=== PATIENT | male | born 1975 | race African-American/Black ===

== ENCOUNTER 2016-04-15 15:13 | Emergency (ER) | payer MEDICARE, MEDICAID ==
[~2016-04-15] VITALS: Ht 177.8 cm; Wt 111.1 kg
[~2016-04-15 15:13] MED LIST: AZITHROMYCIN250 MG ORAL; CIPROFLOXACIN500 M2 ORAL; CLINDAMYCIN HC300 MG ORAL; CORTISPORIN EAR10 ML OTIC; CYCLOBENZAPRINE10 MG ORAL; FLONASE1 SPRAYS NASAL; GENTAK3.5 GM OP; IBUPROFEN600 MG ORAL; IBUPROFEN800 MG ORAL; KEFLEX500 MG ORAL; LATUDA40 MG PO; NKM; NORCO 5-325 TA1 EACH ORAL; PROMETHAZINE-D118 ML ORAL; RISPERDAL1 MG PO; ROBAXIN500 MG PO; TRAMADOL HCL50 MG ORAL; TRILEPTAL300 MG PO; TRILEPTAL600 MG PO; VENTOLIN HFA18 GM INH; ZITHROMAX250 MG ORAL; ZOLOFT100 MG ORAL
[2016-04-15 15:29] VITALS: BP 141/93
[2016-04-15] MEDS ORDERED: Ipratropium 0.02% Inh Soln 2.5ml UD HHN ONE (15:45)
[2016-04-15] MEDS ORDERED: Albuterol ud Inhalation HHN ONE (15:45)
[2016-04-15] MEDS ORDERED: PROAIR HFA8.5 GM INH (16:24)
[2016-04-15 16:44] VITALS: BP 137/81
--- NOTE | 2016-04-15 17:59 | Emergency Room Report ---
History of Present Illness General Chief Complaint: Asthma Source: Patient, Medical Record Present Illness HPI The patient is a 40-year-old male with a history of asthma presenting with chest tightness which began this morning. The patient states that he has run out of his albuterol which usually helps. The patient denies any other symptoms including chest pain, shortness of breath, cough, nausea, vomiting, fever, chills, headache, dizziness Allergies: Coded Allergies: PENICILLINS (Unverified Allergy, Unknown, 01/21/14) Patient History Past Medical History: see triage record, asthma Pertinent Family History: none Reviewed Nursing Documentation: PMH: Agreed, PSxH: Agreed Nursing Documentation-PMH Hx Asthma: Yes Review of Systems All Other Systems: negative except mentioned in HPI Physical Exam Vital Signs Date Time Temp Pulse Resp B/P Pulse Ox O2 Delivery O2 Flow Rate FiO2 04/15/16 15:23 99.0 114 16 141/93 99 Room Air Sp02 EP Interpretation: reviewed, normal General Appearance: no apparent distress, alert, GCS 15, non-toxic Head: normocephalic, atraumatic Eyes: bilateral eye PERRL, bilateral eye normal inspection ENT: hearing grossly normal, normal pharynx, no angioedema, normal voice Neck: full range of motion, supple/symm/no masses Respiratory: chest non-tender, no respiratory distress, no retraction, no accessory muscle use, no wheezing, decreased breath sounds Cardiovascular #1: regular rate, rhythm, no edema Musculoskeletal: back normal, gait/station normal, normal range of motion, non- tender Neurologic: alert, oriented x3, responsive, motor strength/tone normal, sensory intact, speech normal Psychiatric: judgement/insight normal, memory normal, mood/affect normal, no suicidal/homicidal ideation Reflexes: 3+ bicep (R), 3+ bicep (L), 3+ tricep (R), 3+ tricep (L), 3+ knee (R) , 3+ knee (L) Skin: normal color, no rash, warm/dry, well hydrated Lymphatic: no adenopathy Medical Decision Making PA Attestation Dr. Del Cid is my supervising physician. Patient management was discussed with my supervising physician Diagnostic Impression: Primary Impression: Asthma ER Course The patient is a 40-year-old male with a history of asthma presenting for asthma exacerbation Differential diagnoses considered but not limited to: Asthma exacerbation, bronchitis, pneumonia, anxiety Physical exam: Vitals within normal limits. No apparent distress HEENT exam is unremarkable Lungs: Decreased breath sounds bilaterally. Chest is nontender. No respiratory distress. No accessory muscle use. The patient was given a breathing treatment and is feeling much better. Lungs sounds have increased Patient is discharged home with a prescription for albuterol and will followup with PMD. ER precautions are given Last Vital Signs Date Time Temp Pulse Resp B/P Pulse Ox O2 Delivery O2 Flow Rate FiO2 04/15/16 16:44 99.0 100 18 137/81 100 Room Air Status: improved Disposition: HOME, SELF-CARE Condition: Improved Scripts Albuterol Sulfate* (PROAIR HFA*) 8.5 Gm Hfa.aer.ad 2 PUFFS INH Q6H, #8.5 GM 0 Refills Prov: CONNIE BETTS 04/15/16 Referrals: Alex Riley MD (PCP) Patient Instructions: Asthma, Adult Additional Instructions: I discussed my findings with the patient. All questions and concerns have been answered. Treatment and medication compliance have been addressed. I advised the patient that they need to follow up with PMD in 3-5 days. Return to ED if symptoms worsen, new symptoms arise, or if needed for any reason. Patient verbalized understanding of discharge instructions. CONNIE BETTS Apr 15, 2016 17:59
== END 2016-04-15 16:44 | disposition home or self-care (01) ==
LOC: EMR 15:56
DX: J45.909 Unspecified asthma, uncomplicated (principal); Z88.0 Allergy status to penicillin
CPT/HCPCS: 94640; 94664; 99283

== ENCOUNTER 2016-08-15 02:06 | Inpatient (IN) | payer MEDICARE, MEDICAID ==
[2016-08-15] VITALS (8 sets, daily range): BP systolic 104–149; BP diastolic 43–100
[~2016-08-15] VITALS: Ht 175.3 cm; Wt 108.9 kg
[~2016-08-15 02:06] MED LIST changes: +PROAIR HFA8.5 GM INH
--- NOTE | 2016-08-15 02:25 | Emergency Room Report ---
History of Present Illness General Chief Complaint: Chest Pain Source: Patient Present Illness HPI Patient presents with dyspnea. This been on for several days. He was given a breathing treatment several days ago emergency room but has not gotten better. Denies any fevers. He is unable to produce any phlegm. He has crackles and wheezes in his chest. He denies any chest pain per se but has dyspnea on exertion. Himself here. In the past he's had an admission for rule out which is negative. Patient denies calf pain/swelling, hemoptysis. Denies fever, chills, NVD, dysuria. Denies smoking but admits to some drug use. Denies SI or HI. Never been this dyspneic. Allergies: Coded Allergies: PENICILLINS (Unverified Allergy, Unknown, 01/21/14) Patient History Past Medical History: see triage record Social History: Reports: drug use, Denies: smoking Social History Narrative drove himself here Reviewed Nursing Documentation: PMH: Agreed, PSxH: Agreed Nursing Documentation-PMH Past Medical History: No History, Except For Hx Asthma: Yes Review of Systems All Other Systems: negative except mentioned in HPI Physical Exam Vital Signs Date Time Temp Pulse Resp B/P Pulse Ox O2 Delivery O2 Flow Rate FiO2 08/15/16 02:10 100.0 112 16 129/83 89 Room Air Sp02 EP Interpretation: reviewed, abnormal - hypoxemic on room air General Appearance: well appearing, GCS 15, mild distress Head: normocephalic Eyes: bilateral eye PERRL, bilateral eye Scleral Injection ENT: moist mucus membranes Neck: supple Respiratory: crackles, rales, wheezing, expiration Cardiovascular #1: regular rate, rhythm, no edema, no JVD Cardiovascular #2: 2+ radial (R) Gastrointestinal: normal inspection, normal bowel sounds, non tender, no mass, non-distended Musculoskeletal: back normal, gait/station normal, normal range of motion Neurologic: alert, oriented x3, grossly normal Psychiatric: mood/affect normal Skin: normal inspection, warm/dry Medical Decision Making Diagnostic Impression: Primary Impression: Hypoxia Additional Impressions: Amphetamine abuse Leukocytosis Qualified Codes: D72.829 - Elevated white blood cell count, unspecified ER Course Patient presents with dyspnea with rales. Differential includes pneumonia, congestive heart failure, bronchospasm, PE amongst others. Emergent evaluation with EKG, chest x-ray and labs undertaken. The patient be treated with aspirin and nitroglycerin paste morphine and also breathing treatments. Patient is quite hypoxemic on oxygen. D dimer is negative. BNP is low. CXR not significant infiltrates, though with elevated WBC, need to cover for pneumonia. + tox screen. Slight improvement, but still with hypoxia. Discussed with Dr. Zarate - admit telemetry. Laboratory Tests Test 08/15/16 02:35 08/15/16 03:55 White Blood Count 13.4 K/UL (4.8-10.8) H Red Blood Count 5.48 M/UL (4.70-6.10) Hemoglobin 14.8 G/DL (14.2-18.0) Hematocrit 46.5 % (42.0-52.0) Mean Corpuscular Volume 85 FL (80-99) Mean Corpuscular Hemoglobin 27.1 PG (27.0-31.0) Mean Corpuscular Hemoglobin Concent 31.9 G/DL (32.0-36.0) L Red Cell Distribution Width 13.2 % (11.6-14.8) Platelet Count 240 K/UL (150-450) Mean Platelet Volume 9.7 FL (6.5-10.1) Neutrophils (%) (Auto) 73.5 % (45.0-75.0) Lymphocytes (%) (Auto) 14.8 % (20.0-45.0) L Monocytes (%) (Auto) 6.6 % (1.0-10.0) Eosinophils (%) (Auto) 4.2 % (0.0-3.0) H Basophils (%) (Auto) 0.9 % (0.0-2.0) Prothrombin Time 10.5 SEC (9.30-11.50) Prothrombin Time INR 1.0 (0.9-1.1) PTT 29 SEC (23-33) D-Dimer < 100 ng/mL (<500) Sodium Level 140 mEQ/L (135-145) Potassium Level 3.8 mEQ/L (3.4-4.9) Chloride Level 100 mEQ/L (98-107) Carbon Dioxide Level 25 mEQ/L (20-30) Anion Gap 15 (5-15) Blood Urea Nitrogen 13 mg/dL (7-23) Creatinine 1.2 mg/dL (0.7-1.2) Estimate Glomerular Filtration Rate > 60 mL/min (>60) Glucose Level 101 mg/dL (74-106) Calcium Level 9.1 mg/dL (8.6-10.2) Total Bilirubin 0.2 mg/dL (0.0-1.2) Aspartate Amino Transferase (AST) 21 U/L (5-40) Alanine Aminotransferase (ALT) 20 U/L (3-41) Alkaline Phosphatase 73 U/L (40-129) Total Creatine Kinase 515 U/L (38-174) H Creatine Kinase MB 5.0 ng/mL (< 6.7) Creatine Kinase MB Relative Index 0.9 Troponin I < 0.30 ng/mL (<=0.30) Pro-B-Type Natriuretic Peptide 9 pg/mL (0-125) Total Protein 7.6 g/dL (6.6-8.7) Albumin 4.4 g/dL (3.5-5.2) Globulin 3.2 g/dL Albumin/Globulin Ratio 1.3 (1.0-2.7) Urine Color Yellow Urine Appearance Clear Urine pH 5 (4.5-8.0) Urine Specific [place] 1.025 (1.005-1.035) Urine Protein 1+ (NEGATIVE) H Urine Glucose (UA) Negative (NEGATIVE) Urine Ketones Negative (NEGATIVE) Urine Occult Blood Negative (NEGATIVE) Urine Nitrite Negative (NEGATIVE) Urine Bilirubin Negative (NEGATIVE) Urine Urobilinogen Normal MG/DL (0.0-1.0) Urine Leukocyte Esterase 1+ (NEGATIVE) H Urine RBC 0-2 /HPF (0 - 0) H Urine WBC 2-4 /HPF (0 - 0) Urine Squamous Epithelial Cells Occasional /LPF Urine Bacteria Few /HPF (NONE) Urine Mucus Moderate /LPF (NONE/OCC) H Urine Opiates Screen Positive (NEGATIVE) H Urine Barbiturates Screen Negative (NEGATIVE) Phencyclidine (PCP) Screen Negative (NEGATIVE) Urine Amphetamines Screen Positive (NEGATIVE) H Urine Benzodiazepines Screen Negative (NEGATIVE) Urine Cocaine Screen Negative (NEGATIVE) Urine Marijuana (THC) Screen Positive (NEGATIVE) H EKG Diagnostic Results Rate: tachycardiac Rhythm: NSR ST Segments: no acute changes Rhythm Strip Diag. Results EP Interpretation: yes Rhythm: no PVC's, no ectopy, other - ST Chest X-Ray Diagnostic Results Chest X-Ray Diagnostic Results : Chest X-Ray Ordered: Yes # of Views/Limited/Complete: 1 View EP Interpretation: Yes Interpretation: no consolidation, no effusion, no pneumothorax, no acute cardiopulmonary disease Indication: Shortness of Breath Impression: Other Interpreting ER Provider: Electronically signed by David Del Cid MD Last Vital Signs Date Time Temp Pulse Resp B/P Pulse Ox O2 Delivery O2 Flow Rate FiO2 08/15/16 05:00 97 16 116/73 96 Nasal Cannula 2.0 08/15/16 04:52 99.0 Status: improved Disposition: ADMITTED INPATIENT Condition: Serious David Del Cid M.D. Aug 15, 2016 02:25
[2016-08-15] MEDS ORDERED: Aspirin Baby 81mg ORAL ONE (02:30)
[2016-08-15] MEDS ORDERED: Nitroglycerin 2% oint pkt TOPIC ONE (02:30)
[2016-08-15] MEDS ORDERED: Ipratropium 0.02% Inh Soln 2.5ml UD HHN ONE (02:30)
[2016-08-15] MEDS ORDERED: Morphine Sulfate 2mg/ml Inj IVP ONE (02:30)
[2016-08-15] MEDS: Albuterol ud Inhalation HHN SCH ×3 (02:35→03:01)
[2016-08-15 02:50] LABS: BASOPHILS % (AUTO) 0.9 % (0.0-2.0); EOSINOPHILS % (AUTO) 4.2 % (0.0-3.0); LYMPHOCYTES % (AUTO) 14.8 % (20.0-45.0); MEAN CORPUSCULAR HEMOGLOBIN 27.1 PG (27.0-31.0); MEAN CORPUSCULAR HGB CONC 31.9 G/DL (32.0-36.0); MEAN CORPUSCULAR VOLUME 85 FL (80-99); MEAN PLATELET VOLUME 9.7 FL (6.5-10.1); MONOCYTES % (AUTO) 6.6 % (1.0-10.0); NEUTROPHILS % (AUTO) 73.5 % (45.0-75.0); PLATELET COUNT 240 K/UL (150-450); RED BLOOD COUNT 5.48 M/UL (4.70-6.10); RED CELL DISTRIBUTION WIDTH 13.2 % (11.6-14.8); WHITE BLOOD COUNT 13.4 K/UL (4.8-10.8)
[2016-08-15 03:22] LABS: PROTHROMBIN TIME 10.5 SEC (9.30-11.50)
[2016-08-15 03:30] LABS: ALANINE AMINOTRANSFERASE 20 U/L (3-41); ALBUMIN/GLOBULIN RATIO 1.3 (1.0-2.7); ANION GAP 15 (5-15); ASPARTATE AMINO TRANSFERASE 21 U/L (5-40); CALCIUM 9.1 mg/dL (8.6-10.2); CARBON DIOXIDE 25 mEQ/L (20-30); CHLORIDE 100 mEQ/L (98-107); CREATININE 1.2 mg/dL (0.7-1.2); GLOMERULAR FILTRATION RATE > 60 mL/min (>60); HEMOLYSIS 5; POTASSIUM 3.8 mEQ/L (3.4-4.9); SODIUM 140 mEQ/L (135-145); TOTAL PROTEIN 7.6 g/dL (6.6-8.7)
[2016-08-15 03:32] LABS: TROPONIN I < 0.30 ng/mL (<=0.30)
[2016-08-15 04:14] LABS: APPEARANCE,URINE CLEAR; KETONES,URINE NEGATIVE (NEGATIVE); LEUKOCYTE ESTERASE ,URINE 1+ (NEGATIVE); NITRITE,URINE NEGATIVE (NEGATIVE); PH,URINE 5 (4.5-8.0); PROTEIN,URINE 1+ (NEGATIVE); UROBILINOGEN,URINE NORMAL MG/DL (0.0-1.0)
[2016-08-15] MEDS ORDERED: Cefepime HCl 1 GM in D5W 55 ML IVPB ONE (04:15)
[2016-08-15] MEDS ORDERED: Solu-MEDROL 125mg Inj IVP ONE (04:15)
[2016-08-15] MEDS ORDERED: Cefepime 1gm vial ONE (04:24)
[2016-08-15 04:55] LABS: RBC,URINE 0-2 /HPF (0 - 0); SQUAMOUS EPITHELIAL CELL,UR OCCASIONAL /LPF (NONE/OCC)
[2016-08-15 04:56] LABS: BACTERIA,URINE FEW /HPF; MUCUS,URINE MODERATE /LPF (NONE/OCC)
[2016-08-15] MEDS ORDERED: DuoNeb 0.5-3(2.5)mg/3ml neb HHN PRN (09:00)
[2016-08-15] MEDS ORDERED: 1/2NS w/KCl 20mEq 1000ml 1,000 ML IV SCH (09:00)
[2016-08-15 09:02] LABS: ABG ALLEN TEST POSITIVE; ABG BASE EXCESS -3.2; ABG PCO2 38.4 mmHg (35.0-45.0)
--- NOTE | 2016-08-15 10:16 | History and Physical Report ---
DATE OF ADMISSION: 08/15/2016 CHIEF COMPLAINT: Shortness of breath. HISTORY OF PRESENT ILLNESS: This is a 41-year-old male with history of bronchial asthma. The patient is admitted with acute exacerbation of his asthma. PAST MEDICAL HISTORY: 1. Bronchial asthma. 2. Chronic low back pain. 3. Obesity. 4. History of proteinuria. 5. History of methamphetamine use. 6. History of suicidal ideations in the past. MEDICATIONS: Home medications including [place], albuterol inhalation, Zithromax, cephalexin, ciprofloxacin, clindamycin, Flexeril, famotidine with codeine syrup, fluticasone propionate nasal spray, gentamicin eye drops, ibuprofen, Latuda, pyridoxine, Trileptal, risperidone, Zoloft, and tramadol. ALLERGIES: Penicillins. SOCIAL HISTORY: He lives at home. HABITS: Significant for methamphetamine use. He denies cigarette smoking. FAMILY HISTORY: Unremarkable. REVIEW OF SYSTEMS: HEENT: Ears, Nose, and Throat, normal. Endocrine: No history of diabetes, thyroid, or adrenal problems. Respiratory: history of present illness. Cardiovascular: Denies chest pain or palpitations. Gastrointestinal: No hematochezia, melena, hematemesis, diarrhea, or constipation. Genitourinary: He denies dysuria, frequency, urgency, or hematuria. Neurological: No history of stroke, syncope, or Parkinson disease. Psychiatric: Significant for history of depression. PHYSICAL EXAMINATION: GENERAL: This is a middle-aged male, who is obese. The patient is in moderate respiratory distress. VITAL SIGNS: Blood pressure 135/72, pulse 106 apical, respirations 20, temperature is 98.2 degrees, O2 saturation currently is 99% on 2 liters per minute nasal cannula. HEENT: The head is normocephalic and atraumatic. Pupils are equal, round, and reactive to light and accommodation consensually. NECK: Supple. Trachea midline. There was no lymphadenopathy or thyromegaly. LUNGS: Bilateral wheezes and extreme with prolongation of the expiratory phase. HEART: Regular rate and rhythm with tachycardia. ABDOMEN: Soft and nontender. Bowel sounds were active. EXTREMITIES: No clubbing, cyanosis, or edema. NEUROLOGICAL: He is alert and oriented x4. Cranial nerves II through XII are intact. LABORATORY AND ANCILLARY DATA: CBC shows a white count 13,400. The rest is normal. Serum chemistry, CPK 515, otherwise within normal limits. Urinalysis, 1+ leukocyte esterase, sediment is within normal limits, and 1+ protein. Chest x-ray, no infiltrates. ASSESSMENT: 1. Chronic obstructive pulmonary disease exacerbation. 2. problems in past medical history. PLAN: 1. Intensive respiratory treatments. 2. IV steroids. 3. IV antibiotics. 4. Hold narcotics. 5. Respiratory treatment. 6. Pulmonary consult. 7. ABG. Tee Virgen M.D. DR: KRISHAN JOB#: [id number] CC:
[2016-08-15] MEDS: DuoNeb 0.5-3(2.5)mg/3ml neb HHN SCH ×4 (11:00→23:00)
[2016-08-15] MEDS: Potassium Chloride 30 MEQ in 1/2 NS 1000ml 1,000 ML IV SCH (12:06)
--- NOTE | 2016-08-15 13:15 | Consultation ---
Consult Note Consult Note HISTORY OF PRESENT ILLNESS: 41-year-old male with history of bronchial asthma who presents with exacerbation and shortness of breath. The patient is admitted with acute exacerbation of his asthma and started on therapy. I was asked to see and evaluate the patient's respiratory symptoms and assess for further improvement. Patient findings discussed. ER notes reviewed. HP reviewed. no fevers or chills. chest tightness noted PAST MEDICAL HISTORY: 1. Bronchial asthma. 2. Chronic low back pain. 3. Obesity. 4. History of proteinuria. 5. History of methamphetamine use. 6. History of suicidal ideations in the past. MEDICATIONS: reviewed and reconciled ALLERGIES: Penicillins. SOCIAL HISTORY: Significant for methamphetamine use. He denies cigarette smoking. currently unemployed FAMILY HISTORY: Unremarkable. REVIEW OF SYSTEMS: all 10 point reviewed PHYSICAL EXAMINATION: GENERAL: This is a middle-aged male, with mild dyspnea VITAL SIGNS: Blood pressure 134/67, pulse 97 apical, respirations 20, temperature is 98.2 degrees, O2 saturation currently is 98% on 2 liters per minute nasal cannula. HEENT: The head is normocephalic and atraumatic. Pupils are equal, round, and reactive to light and accommodation consensually. NECK: Supple. carotids 2+ LUNGS: Bilateral wheezes and reduced air entry HEART: Regular rate and rhythm with MRG ABDOMEN: Soft and nontender. Bowel sounds were active. no HSM EXTREMITIES: No clubbing, cyanosis, or edema. NEUROLOGICAL: He is alert and oriented x4. Cranial nerves II through XII are intact. LABORATORY AND ANCILLARY DATA: Labs Test 08/15/16 02:35 08/15/16 03:55 08/15/16 08:41 White Blood Count 13.4 K/UL (4.8-10.8) Red Blood Count 5.48 M/UL (4.70-6.10) Hemoglobin 14.8 G/DL (14.2-18.0) Hematocrit 46.5 % (42.0-52.0) Mean Corpuscular Volume 85 FL (80-99) Mean Corpuscular Hemoglobin 27.1 PG (27.0-31.0) Mean Corpuscular Hemoglobin Concent 31.9 G/DL (32.0-36.0) Red Cell Distribution Width 13.2 % (11.6-14.8) Platelet Count 240 K/UL (150-450) Mean Platelet Volume 9.7 FL (6.5-10.1) Neutrophils (%) (Auto) 73.5 % (45.0-75.0) Lymphocytes (%) (Auto) 14.8 % (20.0-45.0) Monocytes (%) (Auto) 6.6 % (1.0-10.0) Eosinophils (%) (Auto) 4.2 % (0.0-3.0) Basophils (%) (Auto) 0.9 % (0.0-2.0) Prothrombin Time 10.5 SEC (9.30-11.50) Prothromb Time International Ratio 1.0 (0.9-1.1) Activated Partial Thromboplast Time 29 SEC (23-33) D-Dimer < 100 ng/mL (<500) Sodium Level 140 mEQ/L (135-145) Potassium Level 3.8 mEQ/L (3.4-4.9) Chloride Level 100 mEQ/L (98-107) Carbon Dioxide Level 25 mEQ/L (20-30) Anion Gap 15 (5-15) Blood Urea Nitrogen 13 mg/dL (7-23) Creatinine 1.2 mg/dL (0.7-1.2) Estimat Glomerular Filtration Rate > 60 mL/min (>60) Glucose Level 101 mg/dL (74-106) Calcium Level 9.1 mg/dL (8.6-10.2) Total Bilirubin 0.2 mg/dL (0.0-1.2) Aspartate Amino Transf (AST/SGOT) 21 U/L (5-40) Alanine Aminotransferase (ALT/SGPT) 20 U/L (3-41) Alkaline Phosphatase 73 U/L (40-129) Total Creatine Kinase 515 U/L (38-174) Creatine Kinase MB 5.0 ng/mL (< 6.7) Creatine Kinase MB Relative Index 0.9 Troponin I < 0.30 ng/mL (<=0.30) Pro-B-Type Natriuretic Peptide 9 pg/mL (0-125) Total Protein 7.6 g/dL (6.6-8.7) Albumin 4.4 g/dL (3.5-5.2) Globulin 3.2 g/dL Albumin/Globulin Ratio 1.3 (1.0-2.7) Urine Color Yellow Urine Appearance Clear Urine pH 5 (4.5-8.0) Urine Specific [place] 1.025 (1.005-1.035) Urine Protein 1+ (NEGATIVE) Urine Glucose (UA) Negative (NEGATIVE) Urine Ketones Negative (NEGATIVE) Urine Occult Blood Negative (NEGATIVE) Urine Nitrite Negative (NEGATIVE) Urine Bilirubin Negative (NEGATIVE) Urine Urobilinogen Normal MG/DL (0.0-1.0) Urine Leukocyte Esterase 1+ (NEGATIVE) Urine RBC 0-2 /HPF (0 - 0) Urine WBC 2-4 /HPF (0 - 0) Urine Squamous Epithelial Cells Occasional /LPF Urine Bacteria Few /HPF (NONE) Urine Mucus Moderate /LPF (NONE/OCC) Urine Opiates Screen Positive (NEGATIVE) Urine Barbiturates Screen Negative (NEGATIVE) Phencyclidine (PCP) Screen Negative (NEGATIVE) Urine Amphetamines Screen Positive (NEGATIVE) Urine Benzodiazepines Screen Negative (NEGATIVE) Urine Cocaine Screen Negative (NEGATIVE) Urine Marijuana (THC) Screen Positive (NEGATIVE) Arterial Blood pH 7.369 (7.350-7.450) Arterial Blood Partial Pressure CO2 38.4 mmHg (35.0-45.0) Arterial Blood Partial Pressure O2 95.3 mmHg (75.0-100.0) Arterial Blood HCO3 21.7 mmol/L (22.0-26.0) Arterial Blood Oxygen Saturation 96.8 % (92.0-98.0) Arterial Blood Base Excess -3.2 [place]ake[place] Test Positive ASSESSMENT: 1. Asthma exacerbation. 2. Leukocytosis 3. Respiratory insufficiency 4. shortness of breath PLAN: 1. Oxygen therapy 2. IV steroids and slow taper 3. IV antibiotics and monitor 4. follow up PFT as outpatient 5. Respiratory treatment. 6. monitor for improvement SYEDA FERNANDES Aug 15, 2016 13:15
[2016-08-15] MEDS: Heparin 5000 units/ml inj SUBQ SCH ×2 (14:45→22:10)
[2016-08-15] MEDS: OXcarbazepine 150mg tab ORAL SCH (18:28)
[2016-08-16 00:05] VITALS: BP 123/73
[2016-08-16] MEDS: DuoNeb 0.5-3(2.5)mg/3ml neb HHN SCH ×7 (03:00→23:00)
[2016-08-16] MEDS: Potassium Chloride 30 MEQ in 1/2 NS 1000ml 1,000 ML IV SCH ×2 (04:00→18:00)
[2016-08-16 04:13] VITALS: BP_SYST 128; BP_SYST 134; BP_DIAS 72; BP_DIAS 84
[2016-08-16] MEDS: Heparin 5000 units/ml inj SUBQ SCH ×3 (05:50→21:17)
[2016-08-16 08:00] VITALS: BP 133/6
[2016-08-16] MEDS: Sertraline 100mg tab ORAL SCH ×2 (08:52→08:56)
[2016-08-16] MEDS: OXcarbazepine 150mg tab ORAL SCH ×2 (08:52→08:56)
[2016-08-16] MEDS: Solu-MEDROL 125mg Inj IVP SCH (08:53)
--- NOTE | 2016-08-16 10:24 | General Progress Note ---
Assessment/Plan Assessment/Plan Asthma Exacerbation - BIPAP, IV Abx, steroids, bronchodilators. slowly improving. Subjective Allergies: Coded Allergies: PENICILLINS (Unverified Allergy, Unknown, 01/21/14) Subjective Sleeping. Objective Last 24 Hour Vital Signs Date Time Temp Pulse Resp B/P Pulse Ox O2 Delivery O2 Flow Rate FiO2 08/16/16 09:14 85 16 98 Facial 30 08/16/16 08:00 96.9 88 18 133/6 98 Room Air 08/16/16 08:00 95 08/16/16 07:16 86 20 99 Nasal Cannula 2.0 08/16/16 07:06 85 20 Nasal Cannula 2.0 08/16/16 07:06 Nasal Cannula 2.0 08/16/16 07:06 85 20 98 Nasal Cannula 2.0 08/16/16 04:34 92 08/16/16 04:21 30 08/16/16 04:13 98.4 80 21 128/84 96 Bi-pap 08/16/16 04:08 94 16 98 Facial 30 08/16/16 03:30 Bi-pap 08/16/16 03:30 Bi-pap 08/16/16 00:43 92 24 98 Facial 30 08/16/16 00:20 91 08/16/16 00:05 97.9 88 20 123/73 98 Nasal Cannula 2.0 08/16/16 00:02 30 08/15/16 23:30 94 27 98 Facial 30 08/15/16 23:06 Nasal Cannula 2.0 08/15/16 23:05 Nasal Cannula 2.0 08/15/16 20:34 96.3 99 20 148/100 95 Room Air 08/15/16 20:00 102 08/15/16 19:45 94 20 99 Nasal Cannula 2.0 08/15/16 19:30 92 20 Nasal Cannula 2.0 08/15/16 19:30 92 20 98 Nasal Cannula 2.0 08/15/16 19:30 Nasal Cannula 2.0 08/15/16 16:00 99 08/15/16 15:34 82 16 98 Room Air 08/15/16 15:29 97.7 111 20 149/88 97 Room Air 08/15/16 15:28 79 16 100 Room Air 08/15/16 12:00 102 08/15/16 11:22 97.7 102 20 134/67 100 Simple Mask Intake and Output 08/15/16 08/16/16 19:00 07:00 Intake Total 1078 ml 715 ml Balance 1078 ml 715 ml Intake Oral 630 ml IV Total 448 ml 715 ml # Voids 2 1 # Bowel Movements 1 Laboratory Tests 08/15/16 17:40: Urine Opiates Screen Negative, Urine Barbiturates Screen Negative, Phencyclidine (PCP) Screen Negative, Urine Amphetamines Screen PositiveH, Urine Benzodiazepines Screen Negative, Urine Cocaine Screen Negative, Urine Marijuana (THC) Screen PositiveH Height (Feet): 5 Height (Inches): 9.00 Weight (Pounds): 240 Objective On BIPAP. Cv RR Lungs B wheezes. Abd SNT. BS + E No CCE BULMARO COULTER Aug 16, 2016 10:24
--- NOTE | 2016-08-16 10:46 | Pulmonology Progress Note ---
Assessment/Plan Assessment/Plan ASSESSMENT: 1. Asthma exacerbation. 2. Leukocytosis 3. Respiratory insufficiency 4. shortness of breath 5. sleep apnea 6. obesity PLAN: 1. Oxygen therapy to off 2. IV steroids- may change to medrol jasiel 3. IV antibiotics -may change to Zpak 4. follow up PFT and sleep study as outpatient 5. Respiratory treatment. 6. monitor for improvement and may proceed with dc planning with close outpatient follow up Subjective Allergies: Coded Allergies: PENICILLINS (Unverified Allergy, Unknown, 01/21/14) Subjective needed BIPAP for sleep apnea doing better more alert Objective Last 24 Hour Vital Signs Date Time Temp Pulse Resp B/P Pulse Ox O2 Delivery O2 Flow Rate FiO2 08/16/16 09:14 85 16 98 Facial 30 08/16/16 08:00 96.9 88 18 133/6 98 Room Air 08/16/16 08:00 95 08/16/16 07:16 86 20 99 Nasal Cannula 2.0 08/16/16 07:06 85 20 Nasal Cannula 2.0 08/16/16 07:06 Nasal Cannula 2.0 08/16/16 07:06 85 20 98 Nasal Cannula 2.0 08/16/16 04:34 92 08/16/16 04:21 30 08/16/16 04:13 98.4 80 21 128/84 96 Bi-pap 08/16/16 04:08 94 16 98 Facial 30 08/16/16 03:30 Bi-pap 08/16/16 03:30 Bi-pap 08/16/16 00:43 92 24 98 Facial 30 08/16/16 00:20 91 08/16/16 00:05 97.9 88 20 123/73 98 Nasal Cannula 2.0 08/16/16 00:02 30 08/15/16 23:30 94 27 98 Facial 30 08/15/16 23:06 Nasal Cannula 2.0 08/15/16 23:05 Nasal Cannula 2.0 08/15/16 20:34 96.3 99 20 148/100 95 Room Air 08/15/16 20:00 102 08/15/16 19:45 94 20 99 Nasal Cannula 2.0 08/15/16 19:30 92 20 Nasal Cannula 2.0 08/15/16 19:30 92 20 98 Nasal Cannula 2.0 08/15/16 19:30 Nasal Cannula 2.0 28 08/15/16 16:00 99 08/15/16 15:34 82 16 98 Room Air 08/15/16 15:29 97.7 111 20 149/88 97 Room Air 08/15/16 15:28 79 16 100 Room Air 21 08/15/16 12:00 102 08/15/16 11:22 97.7 102 20 134/67 100 Simple Mask Intake and Output 08/15/16 08/16/16 19:00 07:00 Intake Total 1078 ml 715 ml Balance 1078 ml 715 ml Intake Oral 630 ml IV Total 448 ml 715 ml # Voids 2 1 # Bowel Movements 1 Objective WDWN NAD clearer breath sounds bilaterally with minimal rhonchi and wheeze [id number] without MRG NABS nontender no HSM no CC; mild edema nonfocal EOMI oropharynx clear Laboratory Tests 08/15/16 17:40: Urine Opiates Screen Negative, Urine Barbiturates Screen Negative, Phencyclidine (PCP) Screen Negative, Urine Amphetamines Screen PositiveH, Urine Benzodiazepines Screen Negative, Urine Cocaine Screen Negative, Urine Marijuana (THC) Screen PositiveH Current Medications Medications (Trade) Dose Ordered Sig/Dieudonne Route PRN Reason Start Time Stop Time Status Last Admin Dose Admin Al Hydroxide/Mg Hydroxide (Mylanta) 30 ml Q6H PRN ORAL Dyspepsia 08/16/16 05:00 09/15/16 04:44 Albuterol/ Ipratropium (DuoNeb 0.5-3(2.5)mg/3ml) 3 ml Q4HRT HHN 08/15/16 11:00 08/20/16 10:59 08/16/16 07:06 Albuterol/ Ipratropium 3 ml 3 ml Q4H PRN HHN Shortness of Breath 08/15/16 09:00 08/20/16 08:59 Heparin Sodium (Porcine) (Heparin 5000 units/ml) 5,000 units EVERY 8 HOURS SUBQ 08/15/16 14:00 09/14/16 13:59 08/16/16 05:50 Levofloxacin 100 ml @ 100 mls/hr Q24H IVPB 08/16/16 09:00 08/23/16 08:59 08/16/16 08:53 Methylprednisolone Sodium Succinate (Solu-MEDROL) 100 mg DAILY IVP 08/16/16 09:00 09/15/16 08:59 08/16/16 08:53 Non-Formulary Medication (Non-Formulary Med) 1 ea DAILY ORAL 08/16/16 09:00 09/15/16 08:59 UNV Oxcarbazepine (Trileptal) 300 mg BID ORAL 08/15/16 18:00 09/14/16 17:59 08/16/16 08:52 Potassium Chloride/Sodium Chloride (KCl/0.45% NS 1000ml) 1,015 ml @ 65 mls/hr [id number] IV 08/15/16 11:00 09/14/16 10:59 08/16/16 04:00 Sertraline HCl (Zoloft) 100 mg DAILY ORAL 08/16/16 09:00 09/15/16 08:59 08/16/16 08:52 SYEDA FERNANDES Aug 16, 2016 10:46
[2016-08-16 12:00] VITALS: BP 129/77
[2016-08-16 16:00] VITALS: BP 124/76
[2016-08-16 20:00] VITALS: BP 140/75
[2016-08-17] VITALS: BP 126/70
[2016-08-17] MEDS: DuoNeb 0.5-3(2.5)mg/3ml neb HHN SCH ×3 (03:00→10:30)
[2016-08-17 04:00] VITALS: BP 147/83
[2016-08-17] MEDS: Heparin 5000 units/ml inj SUBQ SCH (06:16)
[2016-08-17] MEDS: Solu-MEDROL 125mg Inj IVP SCH (08:22)
[2016-08-17 08:29] VITALS: BP 138/86
[2016-08-17] MEDS: Sertraline 100mg tab ORAL SCH (08:30)
[2016-08-17] MEDS: OXcarbazepine 150mg tab ORAL SCH (08:30)
[2016-08-17] MEDS: Potassium Chloride 30 MEQ in 1/2 NS 1000ml 1,000 ML IV SCH (09:20)
--- NOTE | 2016-08-17 10:29 | Pulmonology Progress Note ---
Assessment/Plan Assessment/Plan ASSESSMENT: 1. Asthma exacerbation. 2. Leukocytosis 3. Respiratory insufficiency 4. shortness of breath 5. sleep apnea 6. obesity PLAN: 1. Oxygen therapy to off 2. IV steroids- dc and start prednisone 3. IV antibiotics -change to Zpak 4. follow up PFT and sleep study as outpatient 5. Respiratory treatment. 6. dc planning with close outpatient follow up impression, plan, and exam edited and reviewed in detail care discussed with RN Subjective Allergies: Coded Allergies: PENICILLINS (Unverified Allergy, Unknown, 01/21/14) Subjective BIPAP for sleep apnea seems improved more alert Objective Last 24 Hour Vital Signs Date Time Temp Pulse Resp B/P Pulse Ox O2 Delivery O2 Flow Rate FiO2 08/17/16 08:29 97.5 96 20 138/86 100 Nasal Cannula 2.0 08/17/16 08:00 106 08/17/16 07:13 97 18 99 Nasal Cannula 2.0 28 08/17/16 07:10 97 20 96 Nasal Cannula 2.0 08/17/16 07:08 96 20 Nasal Cannula 2.0 28 08/17/16 07:08 Nasal Cannula 2.0 28 08/17/16 04:00 97.0 78 18 147/83 100 Nasal Cannula 2.0 08/17/16 03:37 83 08/17/16 03:26 Nasal Cannula 2.0 08/17/16 03:25 Nasal Cannula 2.0 08/17/16 00:00 97.7 81 19 126/70 98 Nasal Cannula 2.0 08/17/16 00:00 30 08/16/16 23:45 89 08/16/16 23:15 Bi-pap 08/16/16 23:14 Bi-pap 08/16/16 22:37 84 16 100 Facial 30 08/16/16 20:23 86 08/16/16 20:00 97.9 85 19 140/75 98 Nasal Cannula 2.0 93 08/16/16 18:50 101 18 100 Nasal Cannula 2.0 08/16/16 18:49 95 18 98 Nasal Cannula 2.0 08/16/16 18:48 95 20 Nasal Cannula 2.0 28 08/16/16 18:48 Nasal Cannula 2.0 28 08/16/16 16:00 97.5 85 19 124/76 98 08/16/16 16:00 97 08/16/16 15:25 85 20 98 Bi-pap 08/16/16 15:25 86 20 99 Nasal Cannula 2.0 28 08/16/16 12:00 97.5 91 18 129/77 100 Simple Mask 30 08/16/16 12:00 83 08/16/16 10:53 86 20 99 Bi-pap 08/16/16 10:53 85 20 98 Bi-pap 08/16/16 10:53 86 17 98 Facial 30 Intake and Output 08/16/16 08/17/16 19:00 07:00 Intake Total 1640 ml 780 ml Output Total 980 ml 300 ml Balance 660 ml 480 ml Intake Oral 760 ml IV Total 880 ml 780 ml Output Urine Total 980 ml 300 ml # Voids 4 Objective WDWN NAD clearer breath sounds bilaterally with minimal wheeze [id number] without MRG NABS nontender no HSM no CC; mild edema nonfocal EOMI oropharynx clear obese Current Medications Medications (Trade) Dose Ordered Sig/Dieudonne Route PRN Reason Start Time Stop Time Status Last Admin Dose Admin Al Hydroxide/Mg Hydroxide (Mylanta) 30 ml Q6H PRN ORAL Dyspepsia 08/16/16 05:00 09/15/16 04:44 08/17/16 03:15 Albuterol/ Ipratropium (DuoNeb 0.5-3(2.5)mg/3ml) 3 ml Q4HRT HHN 08/15/16 11:00 08/20/16 10:59 08/17/16 07:07 Albuterol/ Ipratropium 3 ml 3 ml Q4H PRN HHN Shortness of Breath 08/15/16 09:00 08/20/16 08:59 Heparin Sodium (Porcine) (Heparin 5000 units/ml) 5,000 units EVERY 8 HOURS SUBQ 08/15/16 14:00 09/14/16 13:59 08/17/16 06:16 Levofloxacin 100 ml @ 100 mls/hr Q24H IVPB 08/16/16 09:00 08/23/16 08:59 08/17/16 08:22 Methylprednisolone Sodium Succinate (Solu-MEDROL) 100 mg DAILY IVP 08/16/16 09:00 09/15/16 08:59 08/17/16 08:22 Non-Formulary Medication (Non-Formulary Med) 1 ea DAILY ORAL 08/16/16 09:00 09/15/16 08:59 UNV Oxcarbazepine (Trileptal) 300 mg BID ORAL 08/15/16 18:00 09/14/16 17:59 08/16/16 08:52 Potassium Chloride/Sodium Chloride (KCl/0.45% NS 1000ml) 1,015 ml @ 65 mls/hr [id number] IV 08/15/16 11:00 09/14/16 10:59 08/17/16 09:20 Sertraline HCl (Zoloft) 100 mg DAILY ORAL 08/16/16 09:00 09/15/16 08:59 08/16/16 08:52 SYEDA FERNANDES Aug 17, 2016 10:29
[2016-08-17] MEDS ORDERED: D5W 275ml ONE (11:34)
[2016-08-17] MEDS ORDERED: Tubing IV Secondary IV ONE (11:34)
[2016-08-17] MEDS ORDERED: NS 275ml ONE (11:34)
[2016-08-17] MEDS ORDERED: Azithromycin 250mg tab ORAL SCH (15:00)
[2016-08-18] MEDS ORDERED: PredniSONE 20mg tab ORAL SCH (09:00)
[2016-08-18] MEDS ORDERED: Azithromycin 250mg tab ORAL SCH (13:00)
--- NOTE | 2016-08-18 15:32 | Discharge Summary ---
Discharge Summary Hospital Course Date of Admission Aug 15, 2016 at 04:44 Date of Discharge Aug 17, 2016 at 11:35 Admitting Diagnosis hypoxia RIVAS Calero is a 41 year old male who was admitted on Aug 15, 2016 at 04:44 for Hypoxia Hospital Course [id number] Discharge Discharge Disposition Patient was discharged to AMA Discharge Diagnoses: Kailee Beasley NP Aug 18, 2016 15:32
--- NOTE | 2016-08-18 17:30 | Discharge Summary 2 SIG ---
DATE OF ADMISSION: 08/15/2016 DATE OF DISCHARGE: 08/17/2016 CONSULTANTS: Jorge Alberto M.D. BRIEF HOSPITAL COURSE: The patient is a 41-year-old male with history of bronchial asthma, presented to ED complaining of dyspnea that has been ongoing for several days. He was recently at another emergency room, where he was given breathing treatment and sent home. However, symptoms did not get better. On presentation to ED, he was dyspneic with rales. He was given aspirin and nitroglycerin paste and morphine as well as breathing treatments. D-dimer was negative. BNP was 9. Urine toxicology was positive for opiates, amphetamines, and marijuana. Chest x-ray done showed no consolidation, no effusion, and no pneumothorax. WBC showed leukocytosis. The patient was admitted to telemetry for chronic obstructive pulmonary disease exacerbation and was given respiratory treatments and was started on IV steroids. He was followed by medical equipment repair technician, Dr. Alberto and was given intravenous levofloxacin. He was tapered off BiPAP and was placed on nasal cannula. Full treatment was not carried out as the patient left AMA. FINAL DIAGNOSES: 1. Acute asthma exacerbation. 2. Leukocytosis. 3. Respiratory insufficiency. 4. Sleep apnea. 5. Obesity. Tee Virgen M.D. I have been assigned to dictate discharge summary on this account and I was not involved in the patient's management. Kailee Beasley N.P. DR: EMILEE JOB#: [id number] CC: CHANEL
== END 2016-08-17 11:35 | disposition left against medical advice (07) | DRG 203 ==
LOC: EMR 02:40 → 2E 04:44 → EDBEDREQ 05:44
DX: J45.901 Unspecified asthma with (acute) exacerbation (principal); E66.9 Obesity, unspecified; M54.5 Low back pain; D72.829 Elevated white blood cell count, unspecified; F15.90 Other stimulant use, unspecified, uncomplicated; F11.90 Opioid use, unspecified, uncomplicated; F12.90 Cannabis use, unspecified, uncomplicated; G47.30 Sleep apnea, unspecified; Z68.35 Body mass index [BMI] 35.0-35.9, adult
CPT/HCPCS: 36415; 36600; 71010; 80053; 80300; 81003; 82550; 82553; 82803; 83880; 84484; 85025; 85379; 85610; 85730; 87040; 87081; 93005; 94640; 94660; 94664; J7620

== ENCOUNTER 2017-03-22 20:05 | Emergency (ER) | payer MEDICARE, MEDICAID ==
[~2017-03-22] VITALS: Ht 175.3 cm; Wt 108.9 kg
[2017-03-22 20:32] VITALS: BP 127/77
[2017-03-22] MEDS ORDERED: Morphine Sulfate 4mg/ml Inj IVP ONE (21:15)
[2017-03-22] MEDS ORDERED: Ketorolac 30mg Inj IV ONE (21:15)
[2017-03-22 22:00] LABS: APPEARANCE,URINE CLEAR; BASOPHILS % (AUTO) 1.2 % (0.0-2.0); BILIRUBIN, URINE NEGATIVE (NEGATIVE); EOSINOPHILS % (AUTO) 4.7 % (0.0-3.0); GLUCOSE, URINE (UA) NEGATIVE (NEGATIVE); HEMATOCRIT 42.3 % (42.0-52.0); HEMOGLOBIN 13.9 G/DL (14.2-18.0); KETONES,URINE NEGATIVE (NEGATIVE); LEUKOCYTE ESTERASE ,URINE NEGATIVE (NEGATIVE); LYMPHOCYTES % (AUTO) 23.3 % (20.0-45.0); MEAN CORPUSCULAR VOLUME 80 FL (80-99); MONOCYTES % (AUTO) 8.8 % (1.0-10.0); NITRITE,URINE NEGATIVE (NEGATIVE); PH,URINE 6.5 (4.5-8.0); PLATELET COUNT 217 K/UL (150-450); PROTEIN,URINE NEGATIVE (NEGATIVE); RED BLOOD COUNT 5.25 M/UL (4.70-6.10); UROBILINOGEN,URINE NORMAL MG/DL (0.0-1.0); WHITE BLOOD COUNT 8.2 K/UL (4.8-10.8)
[2017-03-22 22:01] LABS: COLOR,URINE YELLOW
[2017-03-22 22:16] LABS: ANION GAP 8 mmol/L (5-15); BLOOD UREA NITROGEN 19 mg/dL (7-18); CALCIUM 9.4 MG/DL (8.5-10.1); CARBON DIOXIDE 26 MMOL/L (21-32); CHLORIDE 107 MMOL/L (98-107); CREATININE 1.4 MG/DL (0.55-1.30); POTASSIUM 4.6 MMOL/L (3.5-5.1); SODIUM 141 MMOL/L (136-145)
[2017-03-22] MEDS ORDERED: HYDROCODON-ACE1 EA15 ORAL (22:39)
[2017-03-22] MEDS ORDERED: IBUPROFEN600 MG ORAL (22:39)
--- NOTE | 2017-03-22 22:40 | Emergency Room Report ---
History of Present Illness General Chief Complaint: Back Pain-No Injury Source: Patient Present Illness HPI Is a 41-year-old male with a history of sleep apnea. He presents to complaint of mid back pain. Onset last night. Increasing pain. Ultram not helping. Pain is mid right upper back. 10 out of 10. No radiation. Worse with movement. No nausea no vomiting. No dysuria frequency. Allergies: Coded Allergies: PENICILLINS (Unverified Allergy, Unknown, 01/21/14) Patient History Past Medical History: see triage record, old chart reviewed Past Surgical History: none Pertinent Family History: none Social History: Denies: smoking Immunizations: other Reviewed Nursing Documentation: PMH: Agreed, PSxH: Agreed Nursing Documentation-PMH Hx Asthma: Yes Review of Systems Eye: Denies: eye pain, blurred vision ENT: Denies: ear pain, nose congestion, throat swelling Respiratory: Denies: cough, shortness of breath Cardiovascular: Denies: chest pain, palpitations Gastrointestinal: Denies: abdominal pain, diarrhea, nausea, vomiting Musculoskeletal: Reports: back pain, Denies: joint pain Skin: Denies: rash Neurological: Denies: headache, numbness Endocrine: Denies: increased thirst, increased urine Hematologic/Lymphatic: Denies: easy bruising All Other Systems: negative except mentioned in HPI Physical Exam Vital Signs Date Time Temp Pulse Resp B/P (MAP) Pulse Ox O2 Delivery O2 Flow Rate FiO2 03/22/17 20:11 98.4 112 18 127/77 98 Room Air vitals with tachycardia [id number] EP Interpretation: reviewed, normal General Appearance: well appearing, no apparent distress, alert Head: normocephalic, atraumatic Eyes: bilateral eye PERRL, bilateral eye EOMI ENT: hearing grossly normal, normal pharynx Neck: full range of motion, supple, no meningismus Respiratory: chest non-tender, lungs clear, normal breath sounds Cardiovascular #1: regular rate, rhythm, no murmur Gastrointestinal: normal bowel sounds, non tender, no mass, no organomegaly, no bruit, non-distended Musculoskeletal: back normal - Right upper flank pain, gait/station normal, normal range of motion Psychiatric: mood/affect normal Skin: warm/dry Medical Decision Making Diagnostic Impression: Primary Impression: Acute thoracic back pain Qualified Codes: M54.6 - Pain in thoracic spine ER Course Patient with upper back pain. No evidence of dissection. No evidence of ureteral stone. Pain is better now. He said that he is no longer using amphetamine. We'll discharge home. Last Vital Signs Date Time Temp Pulse Resp B/P (MAP) Pulse Ox O2 Delivery O2 Flow Rate FiO2 03/22/17 20:32 98.4 18 127/77 98 Room Air 03/22/17 20:11 112 Status: improved Disposition: HOME, SELF-CARE Condition: Stable Scripts Ibuprofen* (MOTRIN*) 600 Mg Tablet 600 MG ORAL THREE TIMES A DAY, #30 TAB 0 Refills Prov: KATHY EARLY M.D. 03/22/17 Hydrocodone/Acetaminophen 5-325* (HYDROCODONE/ACETAMINOPHEN 5-325*) 1 Each Tablet 1 TAB ORAL Q6H Y for For Pain, #15 TAB 0 Refills Prov: KATHY EARLY M.D. 03/22/17 Referrals: NOT CHOSEN IPA/,REFERRING (PCP) Patient Instructions: Back Pain, Adult Additional Instructions: Followup with your Dr. in 7 days. Return if worse. KATHY EARLY M.D. Mar 22, 2017 22:40
[2017-03-22 23:27] VITALS: BP 127/77
--- NOTE | 2017-03-23 10:06 | Diagnostic Imaging Report ---
Indication: Abdominal pain, right flank pain. Technique: CT of the abdomen and pelvis utilizing automated exposure control without intravenous or oral contrast. CT dose: Total DLP 944.08 mGycm; CTDI vol 17.49 mGy Comparison: 10/23/2014 Findings: Please note that evaluation of the abdominal and pelvic viscera is limited without the use of intravenous and oral contrast. Within these limitations, the following observations are made: There is a 4 mm density along the major fissure on the right (series 5 image #8) which may represent a intrapulmonary lymph node. This was seen on the prior exam. There is dependent bibasilar atelectasis. Heart size within normal limits. No pericardial effusion. Gallbladder is contracted, limiting its evaluation. Noncontrast evaluation of the liver, spleen, adrenal glands and pancreas is grossly unremarkable. Kidneys are symmetric in size. There is no urinary tract stone or hydronephrosis bilaterally. Bladder is decompressed, limiting its evaluation. Prostate is not enlarged. Previously described rounded structure in the left inguinal canal not seen on this exam, likely outside the field of view. There is no bowel obstruction. No free intraperitoneal fluid or air is seen. The appendix is normal. Abdominal aorta is normal in caliber. No bulky lymphadenopathy is identified. No acute osseous abnormality seen. IMPRESSION: Limited exam without intravenous and oral contrast. Within these limitations: No evidence of acute intra-abdominal pathology. Specifically, no evidence of hydronephrosis or urinary tract stone as questioned clinically. 4 mm nodule along the fissure in the right lower lobe, possibly intrapulmonary lymph node. Appearance is stable compared to the prior exam. Per 2017 Fleischner Society criteria, no routine imaging follow-up recommended. This corresponds with the statrad preliminary report. The CT scanner at [facility] is accredited by the [employer] and the scans are performed using protocols designed to limit radiation exposure to as low as reasonably achievable to attain images of sufficient resolution adequate for diagnostic evaluation.
== END 2017-03-22 21:45 | disposition home or self-care (01) ==
LOC: EMR 21:17
DX: M54.6 Pain in thoracic spine (principal); J45.909 Unspecified asthma, uncomplicated; Z88.0 Allergy status to penicillin
CPT/HCPCS: 36415; 74176; 80048; 81003; 85025; 96374; 96375; 99284; J1885; J2270; J2405